=== PATIENT | female | born 1975 | race Caucasian/White ===

== ENCOUNTER 2024-11-11 12:42 | Emergency (ER) | payer BC, SELFPAY ==
--- NOTE | ~2024-11-11 | XR_ITS ---
CLINICAL HISTORY: pain between shoulder blades 2 view chest x-ray Comparison: None provided Findings: Three films were obtained. There is bronchial wall thickening. No consolidation, pleural effusion or pneumothorax. Normal size heart. No acute fracture. Multiple surgical clips in the upper abdomen. IMPRESSION: 1. Mild central bronchial wall thickening, which can be seen with asthma, reactive airways process or viral illness. 2. No superimposed infiltrate or consolidation. This document has been electronically signed by: Mercy Cardenas DO on 11/11/2024 15:56:54
--- NOTE | 2024-11-11 13:03 | ED_ITS ---
HPI - General Adult General Chief complaint: General Medical Stated complaint: abd pain, L arm pain and numbness Time Seen by Provider: 11/11/24 16:30 Source: patient and family (patient's ) Mode of arrival: ambulatory Limitations: no limitations History of Present Illness ED Provider: Chelsea Conway PA-C HPI narrative: Patient is a 49 year-old assigned female at with a history of endometriosis, asthma, HTN, hypothyroidism, cholecystectomy presenting to the emergency department today with upper back pain, headache, and left arm numbness and weakness. Patient states that the upper back pain is located between her shoulder blades and radiates to up her neck. She reports that this morning she noticed some numbness and weakness in her left arm. The pain first started 1 week ago. She denies a history of trauma or falls. She has been taking Ketoprofen (NSAID) with some relief. Patient reports she received a massage and acupuncture yesterday and they suggested she be medically evaluated for her symptoms as they could mean something more serious . Patient reports cough consistent with her asthma and seasonal allergies. Patient denies any dizziness, lightheadedness, abdominal pain, nausea, vomiting, fever, chills, blurry vision, double vision, loss of vision, bowel incontinence, bladder incontinence, or any other complaints at this time. She denies any recent travel, sick contacts, or known tick exposure. 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 Onset (ago): week(s) (1) Related Data Allergies Allergy/AdvReac Type Severity Reaction Status Date / Time No Known Allergies Allergy Verified 11/11/24 13:10 Review of Systems 2 Constitutional: Constitutional: Reports as per HPI Eyes: Eyes: Reports as per HPI ENT: Reports as per HPI Cardiovascular: Cardiovascular: Reports as per HPI Respiratory: Respiratory: Reports as per HPI Gastrointestinal: Gastrointestinal: Reports as per HPI Genitourinary: Genitourinary: Reports as per HPI Musculoskeletal: Musculoskeletal: Reports as per HPI Integumentary/Breasts: Skin/Breast: Reports as per HPI Neurologic: Reports as per HPI Psychiatric: Psychiatric: Reports as per HPI Endocrine: Endocrine: Reports as per HPI Hematologic/Lymphatic: Hematologic/Lymphatic: Reports as per HPI Allergic/Immunologic: Allergic/Immunologic: Reports as per HPI [facility] Past Medical History Attestation statement: The following information was validated with the patient. (all information validated with the patient's ) Source: old records reviewed, obtained from family (patient's provided additional history and confirmed the history provided by the patient. ) and nursing notes reviewed Social History Social History Advance Directives: No Advance Directives Information Provided: No Patient : No Physical Exam ED Vital Signs: Vital Signs - 24 hr 11/11/24 13:04 11/11/24 16:41 11/11/24 17:11 Temperature 97.9 F Pulse Rate 69 72 60 Respiratory Rate 18 16 18 Blood Pressure 162/72 H 178/77 H 143/66 H Pulse Oximetry 97 98 98 Oxygen Delivery Method Room Air Room Air Room Air 11/11/24 18:19 Temperature 97.8 F Pulse Rate 60 Respiratory Rate 18 Blood Pressure 143/66 H Pulse Oximetry 98 Oxygen Delivery Method Room Air BMI result Body Mass Index 32.1 Const General: cooperative, no acute distress, alert and awake Nutritional Appearance: well nourished Orientation/consciousness: patient oriented x3 HENMT Head: Yes normal to inspection and Yes atraumatic Ears: hearing grossly normal bilaterally and external ears normal General nose exam: Normal external nose present, no nasal discharge noted and no epistaxis Face and sinus: Yes normal facial exam, No abrasion and No laceration Mouth: Normal oral and palatal mucosa present, no drooling and no muffled voice Eyes General: appearance normal, both eyes and all related structures Periorbital: periorbital findings normal Eyelids: Yes eyelids normal Conjunctivae: conjunctivae normal Pupils: Equal, round and reactive pupils present EOM: EOMs intact bilaterally Neck Neck: Yes normal visual inspection and Yes full ROM Resp Effort & Inspection: normal respiratory effort and able to speak in complete sentences Neuro General: patient oriented x3, moves all extremities and CN's II-XI intact bilaterally Cranial nerves: Yes Equal, round and reactive pupils present Cognition (Neuro): normal cognition Extrem General: Yes normal to inspection, Yes full ROM and Yes capillary refill normal Psych Appearance: grossly normal Mental Status: mental status grossly normal Affect: normal affect Attitude: cooperative Thought process: Normal thought process present Thought content: Normal thought content present Insight: Good insight present (Psych) Course Course Course Narrative: This is a Rapid Medical Examination (RME) performed by Nba Merritt PA-C in triage. Full HPI, ROS, assessment and treatment plan per primary provider in the Main ED. Hx: 49 yo romansh speaking F here for eval of pain between shoulder blades x1 week. assoc epigastric pain/bloating. now having pain and numbness to LUE beginning today. went to an acupuncture massage today - advised to come to ED for further eval. states she is very nervous. Plan: labs, ekg, trop Medications Administered Discontinued Medications Generic Name Dose Route Start Last Admin Trade Name Amrit PRN Reason Stop Dose Admin Ketorolac Tromethamine 15 mg 11/11/24 17:57 11/11/24 18:01 Ketorolac Tromethamine 15 Mg/Ml Vial IM 11/11/24 17:58 15 mg ONCE ONE Administration Medical Decision Making Medical Decision Making [facility] Narrative: Patient is a 49 year-old assigned female at with a history of endometriosis, asthma, HTN, hypothyroidism, cholecystectomy presenting to the emergency department today with upper back pain, headache, and left arm numbness and weakness. Patient's physical exam was unremarkable, NIH score 0. Patient's blood work was unremarkable. Patient's EKG was unremarkable. Patient's chest x- ray showed evidence of small airway disease / asthma. I explained my physical exam findings as well as all test results to the patient and the patient's . I answered all questions asked by the patient and the patient's . Patient's clinical presentation is most consistent with a muscle strain / spasm vs. cervical radiculoapthy. I stressed the importance of the patient taking her medication as directed (either prescribed or as the over the counter packaging recommends). I stressed the importance of the patient following up with her primary care provider. I stressed the importance of the patient returning to the emergency department immediately if her symptoms were to worsen or if she were to develop any dizziness, shortness of breath, difficulty breathing, chest pain, blurry vision, loss of vision, nausea, vomiting, abdominal pain, fever, chills, back pain, or any other complaints. Patient and the patient's verbalized agreement and understanding with this treatment plan and discharge. Differential Diagnosis Differential Diagnoses: The differential diagnosis associated with the presentation includes NSTEMI STEMI Chest pain Back pain Muscle spasm Muscle strain Muscle sprain Admission/Observation Consideration of admission/observation: Escalation of care including admission/observation considered Patient would have been admitted to the hospital had her work up had any findings where hospital admission was appropriate and her clinical presentation warranted hospital admission. Lab Data [facility] Lab Attestation statement: I reviewed the patient's lab results. My interpretation of these results are in the [facility] Rationale portion of this note. 11/11/24 13:25 11/11/24 13:25 Labs: Lab Results 11/11/24 11/11/24 Range/Units 13:25 17:07 WBC 7.9 (4.8-10.8) X10*3/uL RBC 4.52 (4.20-5.50) X10*6/uL Hgb 13.6 (12.0-16.0) g/dl Hct 39.7 (37.0-47.0) % MCV 87.8 (80.0-98.0) fL MCH 30.1 (27.0-33.0) pg MCHC 34.3 (31.0-35.0) g/dl RDW 13.1 (11.0-16.0) % Plt Count 262 (160-400) X10*3/uL MPV 9.5 (9.4-12.3) fL Immature Gran % (Auto) 0.3 (0.0-0.4) % Neut % (Auto) 64.8 (45-73) % Lymph % (Auto) 21.7 (20-40) % Kleberg % (Auto) 6.6 (2-11) % Eos % (Auto) 5.7 H (0-4) % Baso % (Auto) 0.9 (0-2) % Lymph # (Auto) 1.7 (1.2-4.9) X10*3/uL Kleberg # (Auto) 0.5 (0.1-1.2) X10*3/uL Eos # (Auto) 0.5 H (0.0-0.4) X10*3/uL Baso # (Auto) 0.1 (0.0-0.2) X10*3/uL Abs Immat Gran (auto) 0.02 (0.00-0.03) X10*3/uL Absolute Neuts (auto) 5.1 (2.0-8.3) x10*3/uL Absolute Nucleated RBC 0.000 (0.0-0.012) X10*3/uL Nucleated RBC % (auto) 0.0 (0.0-0.2) /100WBC Sodium 144 (135-145) mmol/L Potassium 4.5 (3.3-5.1) mmol/L Chloride 111 H (96-108) mmol/L Carbon Dioxide 23 (22-29) mmol/L Anion Gap 15 (12-20) BUN 18 H (9-16) mg/dL Creatinine 0.68 (0.5-1.4) mg/dL Estim Creat Clear Calc 112.3 Estimated GFR > 60 Random Glucose 102 (60-115) mg/dL Calcium 9.1 (8.4-10.2) mg/dL Magnesium 2.1 (1.6-2.6) mg/dL Total Bilirubin 0.5 (0.0-1.0) mg/dL AST 20 (5-31) U/L ALT 17 (0-31) U/L Alkaline Phosphatase 77 (39-117) U/L Troponin I High Sens < 2.7 3.0 (<3.5-17.0) ng/L Total Protein 6.9 (6.5-8.0) g/dL Albumin 4.3 (3.5-5.0) g/dL Lipase 20 (8-78) U/L Independent Interpretation I performed an independent interpretation of an: EKG and Plain X-Ray Interpretation: My interpretation is in agreement with the radiologist's impression of this imaging study. L CLINICAL HISTORY: pain between shoulder blades 2 view chest x-ray Comparison: None provided Findings: Three films were obtained. There is bronchial wall thickening. No consolidation, pleural effusion or pneumothorax. Normal size heart. No acute fracture. Multiple surgical clips in the upper abdomen. IMPRESSION: 1. Mild central bronchial wall thickening, which can be seen with asthma, reactive airways process or viral illness. 2. No superimposed infiltrate or consolidation. This document has been electronically signed by: Mercy Cardenas DO on 11/11/2024 15:56:54 Dictated By: Mercy Cardenas MD Signed By: Electronically signed by Mercy Cardenas MD 11/11/24 1557 I independently interpreted this EKG and am in agreement with the below findings: Vent. Rate: 62 BPM Atrial Rate: 62 BPM P-R Int: 154 ms QRS Dur: 92 ms QT Int: 448 ms P-R-T Axes: 49 35 45 degrees QTcB Int: 454 ms Normal sinus rhythm No previous ECGs available Electronically Signed By: CALIN PEREIRA MD Dictated By: Calin Pereira MD Signed By: Electronically signed by Calin Pereira MD 11/12/24 1320 Radiology Impression Discussion of test interpretation with radiology: I have reviewed the radiologist's reading. Independent Historian Clinical information obtained from an independent historian. History obtained from or confirmed by: Spouse (Patient's provided additional history and confirmed the history provided by the patient. ) Discharge Plan Discharge Clinical Impression: Muscle strain Patient Disposition: Home, Self-Care Instructions: Muscle Strain (DC) Additional Instructions: Your work up today is reassuring there is no EMERGENT cause for your symptoms. Your x-ray, EKG, and lab work were all normal. IF you are prescribed home medications and/or you are taking over the counter medications at home - it is very important you continue to do so as prescribed / directed unless told otherwise. Follow up with a primary care provider. Return to the emergency department immediately if your symptoms worsen or if you develop any numbness, tingling, dizziness, shortness of breath, difficulty breathing, chest pain, blurry vision, loss of vision, nausea, vomiting, abdominal pain, fever, chills, back pain, or any other complaints. L If you do not have a primary care provider - call any of the below numbers to establish and follow up with a primary care provider. [facility] [place] [phone] [place] [address], [address] [facility] ([address] [place] [phone] [place] [address], [address] [facility], [address] [facility] ([address] [place]) [phone] [place] [address], [address] [facility], [address] [facility] [place]) [phone] [place] [address], [address] [place], [address] [facility] [phone] [address] [facility], [address] Please see the information below about our Patient Portal. If you are not yet enrolled in the [facility] Patient Portal, you will receive an enrollment email invitation following your visit to any [facility] setting. You may also self-enroll in the Patient Portal by visiting our website: [email or web address] The following information is required to access the Patient Portal: - Your [facility] Medical Record Number - Your personal home email address (must match what is in your electronic medical record, Registration staff can assist with this) - Name - Date of Capabilities of the Patient Portal: - Message some providers - View upcoming appointments - Access your health summary, medical history, and visit history - View current conditions and allergies - View procedure and lab results - View your medications, including guidelines, side effects, and precautions - Complete pre-appointment questionnaires requested by your provider - Ready summary reports of your office visits and procedures To access the Patient Portal Mobile [employer], follow these directions: - Search [employer] in the [employer] Store or [employer] ([place]) Store - Download the [employer] - Search for [facility] - Enter your login/password Interventions: ED Discharge Assessment Last Done: 11/11/24 18:19 Discharge Date/Time: 11/11/24 18:20 Print Language: Maura
[2024-11-11 13:04] VITALS: BP 162/72; PULSE 69; RESP 18; TEMP 36.6; O2SAT 97; BMI 32.1
--- NOTE | 2024-11-11 13:06 | ECG_ITS ---
Test Reason : CP Blood Pressure : */* mmHG Vent. Rate : 62 BPM Atrial Rate : 62 BPM P-R Int : 154 ms QRS Dur : 92 ms QT Int : 448 ms P-R-T Axes : 49 35 45 degrees QTcB Int : 454 ms Normal sinus rhythm Poor R wave progression Abnormal ECG No previous ECGs available Referred By: Tamiko Merritt Electronically Signed By: HAKAN PEREIRA MD
[2024-11-11 13:31] LABS: MANUAL DIFF FLAG NO
[2024-11-11 13:32] LABS: Hematocrit 39.7 % (37.0-47.0); Hemoglobin 13.6 g/dl (12.0-16.0); Imm Gran Abs Auto 0.02 X10*3/uL (0.00-0.03); Imm Gran Pct Auto 0.3 % (0.0-0.4); Lymphocytes Absolute Auto 1.7 X10*3/uL (1.2-4.9); Mean Corpuscular HGB Conc 34.3 g/dl (31.0-35.0); Mean Corpuscular Hemoglobin 30.1 pg (27.0-33.0); Mean Corpuscular Volume 87.8 fL (80.0-98.0); NRBC Abs Auto 0.000 X10*3/uL (0.0-0.012); NRBC Pct Auto 0.0 /100WBC (0.0-0.2); Platelet Count 262 X10*3/uL (160-400); Red Blood Count 4.52 X10*6/uL (4.20-5.50); White Blood Count 7.9 X10*3/uL (4.8-10.8)
[2024-11-11 13:48] LABS: Alanine Aminotransferase 17 U/L (0-31); Albumin Level 4.3 g/dL (3.5-5.0); Alkaline Phosphatase 77 U/L (39-117); Anion Gap 15 (12-20); Aspartate Amino Transferase 20 U/L (5-31); Blood Urea Nitrogen 18 mg/dL (9-16); Calcium 9.1 mg/dL (8.4-10.2); Carbon Dioxide 23 mmol/L (22-29); Chloride 111 mmol/L (96-108); Creatinine Clr Calc Pharmacy 112.3; Estimated Glomerular Filt Rate > 60; Lipase 20 U/L (8-78); Magnesium 2.1 mg/dL (1.6-2.6); Potassium 4.5 mmol/L (3.3-5.1); Sodium 144 mmol/L (135-145); Total Protein 6.9 g/dL (6.5-8.0)
[2024-11-11 13:56] LABS: Troponin-I High Sensitivity < 2.7 ng/L (<3.5-17.0)
[2024-11-11 16:41] VITALS: BP 178/77; PULSE 72; RESP 16; O2SAT 98
--- NOTE | 2024-11-11 16:46 | PC.NURSE ---
Patient presents to Ed c/o ABD distention with upper back pain rated 10/10 with movement Denies SOB, chest pain, n/v EKG = NSR CXR = Mild central bronchial wall thickening, which can be seen with asthma,reactive airways process or viral illnes. Provider in to see patient Plan of care on going
[2024-11-11 17:11] VITALS: BP 143/66; PULSE 60; RESP 18; O2SAT 98
--- OUTSIDE RECORDS SUMMARY | 2024-11-11 17:12 | XMS_ITS | Continuity of Care Document ---
Author Organization [facility] [address] [place] [address] Phone [phone] Problems Active Problems Provider Date Essential hypertension Marie Bowling Onset: 04/02/2022 Asthma Nunu Mendez M.D. Ons et: 04/02/2022 Gallstone Nunu Mendez M.D. Ons et: 04/02/2022 Emerson thyroiditis Donna Bowling Onset: 04/02/2022 Hypothyroidism Nunu Mendez M.D. Ons et: 04/02/2022 Multinodular goiter Nunu Mendez M.D. Onset: 04/02/2022 Endometriosis (clinical) Nunu Mendez M.D. Onset: 04/02/2022 Anxiety Nunu Mendez M.D. Ons et: 04/02/2022 Social History Type Date Description Comments Sex Female Sex Unknown Marital Status Legal Status: Lives With Male Partner Work Status Full-Time Employment Tobacco Use Start: Unknown Never Smoked Cigarettes ETOH Use Occasionally consumes alcoho l Allergies and adverse reactions Description No Known Drug Allergies Medications Active Medications SIG Qnty Indications Order ing Provider Date Sertraline [id number] Tablets Take 1 Tablet By Mouth Every Day In The Morning 90tabs Nunu Mendez M.D. 10/14/2023 Triamcinolone Acetonide0.1% Cream apply to affected area (rash) twice a day as needed 15gm Nunu Mendez M.D. 09/03/2022 Montelukast Ctnpta07my Tablets Take 1 Tablet By Mouth Every Day 90tabs Nunu Mendez M.D. 05/18/2022 Rxproqjyx163hm Tablets Take 1 tablet by mouth once daily 90tabs Nunu Mendez M.D. 04/02/2022 Lorazepam0.5mg Tablets 1 tabs by mouth every 6 hours as needed 30tabs Nunu Mendze M.D. 04/02/2022 Amlodipine Besylate2.5mg Tablets Take 1 Tablet By Mouth Every Day 90tabs Nunu Mendez M.D. 04/02/2022 Levothyroxine Sxjhrs00eft Tablets 1/2 by mouth every day Nunu Mendez M.D. Albuterol Sulfate OEE234(90Base) mcg/Act Aerosol use 2 puffs every 4 to 6 hours as needed 1gm Nunu Mendez M.D. Aspirin Ec Low Jxyu45ha Tablets DR 1 by mouth every day Nunu Mendez M.D. Breztri Rflvmxysru120-2-4.8mcg /Act Aerosol 2 puff twice a day Unknown Vital Signs Date Vital Result Comment 10/14/2023 3:58pm BP Systolic 128 mmHg BP Diastolic 64 mmHg Heart Rate 74 /min Height 67 inches 5'7 Weight 201.12 lb BMI (Body Mass Index) 31.5 kg/m2 Results Test Acquired Date Facility Test Result H/L Range Note CBC With Differential/Plat elet 02/21/2024 [facility] WBC 6.3 x10E3/uL 3.4-10.8 RBC 4.39 x10E6/uL 3.77-5.2 8 Hemoglobin 13.5 g/dL 11.1-15. 9 Hematocrit 42.0 % 34.0-46. 6 MCV 96 fL 79-97 MCH 30.8 pg 26.6-33. 0 MCHC 32.1 g/dL 31.5-35. 7 RDW 12.2 % 11.7-15. 4 Platelets 232 x10E3/uL 150-450 Neutrophils 64 % Not Estab. Lymphs 23 % Not Estab. Monocytes 6 % Not Estab. Eos 6 % Not Estab. Basos 1 % Not Estab. Immature Cells TNP Neutrophils (Absolute) 4.1 x10E3/uL 1.4-7.0 Lymphs (Absolute) 1.4 x10E3/uL 0.7-3.1 Monocytes(Absol ut e) 0.4 x10E3/uL 0.1-0.9 Eos (Absolute) 0.4 x10E3/uL 0.0-0.4 Baso (Absolute) 0.1 x10E3/uL 0.0-0.2 Immature Granulocytes 0 % Not Estab. Immature Grans (Abs) 0.0 x10E3/uL 0.0-0.1 NRBC TNP Hematology Comments: TNP Lipid Panel 02/21/2024 [facility] Cholesterol, Total 215 mg/dL High 100-199 Triglycerides 93 mg/dL 0-149 HDL Cholesterol 82 mg/dL >39 VLDL Cholestero l Fortino 16 mg/dL 5-40 LDL Chol Calc (Nih) 117 mg/dL High 0-99 LDL Calc Comment: TNP TSH Rfx on Abnormal to Free T4 02/21/2024 [facility] TSH Rfx on Abnormal to Free T4 2.400 uIU/mL 0.450-4. 500 Celiac AB TTG DGP Tiga 02/21/2024 [facility] Immunoglobulin A, Qn, Serum 367 mg/dL High 87-352 Deamidated Gliadin Abs, IgA 4 units 0-19 1 Deamidated Gliadin Abs, IgG 3 units 0-19 2 t-Transglutamin as e (tTG) IgA <2 U/mL 0-3 3 t-Transglutamin as e (tTG) IgG 4 U/mL 0-5 4 CMP14 02/21/2024 [facility] Glucose 103 mg/dL High 70-99 BUN 11 mg/dL 6-24 Creatinine 0.78 mg/dL 0.57-1.0 0 eGFR 92 mL/min/1. 73 >59 Sodium 142 mmol/L 134-144 Potassium 4.8 mmol/L 3.5-5.2 Chloride 107 mmol/L High 96-106 Carbon Dioxide, Total 22 mmol/L 20-29 Calcium 8.8 mg/dL 8.7-10.2 Protein, Total 6.1 g/dL 6.0-8.5 Albumin 4.0 g/dL 3.8-4.9 Globulin, Total 2.1 g/dL 1.5-4.5 Bilirubin, Total 0.4 mg/dL 0.0-1 .2 Alkaline Phosphatase 69 IU/L 44-121 Ast (Sgot) 18 IU/L 0-40 Alt (SGPT) 19 IU/L 0-32 TSH RFX On Abnormal To Free T4 10/14/2023 [facility] TSH RFX On Abnormal To Free T4 <pending> Comprehensive Metabolic Panl 01/12/2023 [facility] Glucose 89 mg/dL (70-99) BUN 9 mg/dL (6-20) Creatinine 0.6 mg/dL (0.5-1.0 ) Sodium 141 mmol/L (133-145 ) Potassium 4.0 mmol/L (3.6-5.2 ) Chloride 103 mmol/L (98-107) Bicarbonate 28 mmol/L (22-29) Anion Gap 10 (4-17) Albumin 4.4 GM/DL (3.4-4.8 ) Calcium 9.6 mg/dL (8.6-10. 5) Bilirubin,Total 0.3 mg/dL (0-1.2 ) Total Protein 7.0 GM/DL (6.2-8.2 ) Ag Ratio 1.7 Ast 19 U/L (0-32) Alk Phos 90 U/L (35-104) Alt 30 U/L (0-33) Estimated GFR Creatinine 109 ML/MIN/1. 73M2 5 TSH With Reflex To FT4 01/12/2023 [facility] TSH With Reflex To FT4 2.02 uIU/mL (0.4-4.2 ) Complete Abc With Diff 01/12/2023 [facility] WBC 6.7 K/MM3 (4.0-11. 0) RBC 4.50 M/MM3 (4.20-5. 40) HGB 13.6 GM/DL (11.7-15 .5) HCT 42.0 % (35.7-45 .8) MCV 93.3 FL (80.0-10 0.0) MCH 30.2 pg (27.0-34 .0) MCHC 32.4 g/dL Low (33.0-37 .0) PLT 313 K/MM3 (150-460 ) RDW-SD 45.2 FL (<47.0) MPV 10.6 FL (9.4-12. 4) Automated NRBC 0.0 #/100WBC' S Abs. NRBC 0.0 K/MM3 Neut # 3.8 K/MM3 (1.3-7.0 ) Lymph # 2.0 K/MM3 (0.8-3.1 ) Tyler# 0.4 K/MM3 (0.4-0.9 ) Eo # 0.5 K/MM3 High (0.0-0.4 ) Baso # 0.1 K/MM3 (0.0-0.1 ) Abs. Imm Gran 0.0 K/MM3 Neut 56.4 % (44-76) Lymph 29.4 % (15-43) Monocyte 5.4 % (4.5-10. 5) Eo 7.8 % High (0-6) Baso 0.7 % (0-2) Imm Gran 0.3 % Basic Metabolic Panel 05/18/2022 [facility] Glucose 91 mg/dL (70-99) BUN 17 mg/dL (6-20) Creatinine 0.7 mg/dL (0.5-1.0 ) Sodium 143 mmol/L (133-145 ) Potassium 4.3 mmol/L (3.6-5.2 ) Chloride 105 mmol/L (98-107) Bicarbonate 27 mmol/L (22-29) Anion Gap 11 (4-17) Calcium 9.6 mg/dL (8.6-10. 5) Estimated GFR Creatinine 107 ML/MIN/1. 73M2 6 Comprehensive Metabolic Panl 04/02/2022 [facility] Glucose 91 mg/dL (70-99) BUN 16 mg/dL (6-20) Creatinine 0.8 mg/dL (0.5-1.0 ) Sodium 143 mmol/L (133-145 ) Potassium 5.1 mmol/L (3.6-5.2 ) Chloride 107 mmol/L (98-107) Bicarbonate 28 mmol/L (22-29) Anion Gap 8 (4-17) Albumin 4.6 GM/DL (3.4-4.8 ) Calcium 9.9 mg/dL (8.6-10. 5) Bilirubin,Total 0.3 mg/dL (0-1.2 ) Total Protein 6.9 GM/DL (6.2-8.2 ) Ag Ratio 2.0 Ast 21 U/L (0-32) Alk Phos 81 U/L (35-104) Alt 30 U/L (0-33) Estimated GFR Creatinine 96 ML/MIN/1. 73M2 7 Complete Abc With Diff 04/02/2022 [facility] WBC 5.6 K/MM3 (4.0-11. 0) RBC 4.77 M/MM3 (4.20-5. 40) HGB 14.2 GM/DL (11.7-15 .5) HCT 45.0 % (35.7-45 .8) MCV 94.3 FL (80.0-10 0.0) MCH 29.8 pg (27.0-34 .0) MCHC 31.6 g/dL Low (33.0-37 .0) PLT 291 K/MM3 (150-460 ) RDW-SD 43.5 FL (<47.0) MPV 10.8 FL (9.4-12. 4) Automated NRBC 0.0 #/100WBC' S Abs. NRBC 0.0 K/MM3 Neut # 2.9 K/MM3 (1.3-7.0 ) Lymph # 1.7 K/MM3 (0.8-3.1 ) Tyler# 0.4 K/MM3 (0.4-0.9 ) Eo # 0.6 K/MM3 High (0.0-0.4 ) Baso # 0.1 K/MM3 (0.0-0.1 ) Abs. Imm Gran 0.0 K/MM3 Neut 51.0 % (44-76) Lymph 31.0 % (15-43) Monocyte 6.4 % (4.5-10. 5) Eo 10.3 % High (0-6) Baso 1.1 % (0-2) Imm Gran 0.2 % TSH With Reflex To FT4 04/02/2022 [facility] TSH With Reflex To FT4 1.36 uIU/mL (0.4-4.2 ) Complete Abc With Diff 11/03/2021 [facility] WBC 8.9 K/MM3 (4.0-11. 0) RBC 4.45 M/MM3 (4.20-5. 40) HGB 14.0 GM/DL (11.7-15 .5) HCT 42.1 % (35.7-45 .8) MCV 94.6 FL (80.0-10 0.0) MCH 31.5 pg (27.0-34 .0) MCHC 33.3 g/dL (33.0-37 .0) PLT 278 K/MM3 (150-460 ) RDW-SD 44.3 FL (<47.0) MPV 10.7 FL (9.4-12. 4) Automated NRBC 0.0 #/100WBC' S Abs. NRBC 0.0 K/MM3 Neut # 5.8 K/MM3 (1.3-7.0 ) Lymph # 2.2 K/MM3 (0.8-3.1 ) Tyler# 0.4 K/MM3 (0.4-0.9 ) Eo # 0.4 K/MM3 (0.0-0.4 ) Baso # 0.1 K/MM3 (0.0-0.1 ) Abs. Imm Gran 0.0 K/MM3 Neut 65.3 % (44-76) Lymph 24.7 % (15-43) Monocyte 4.5 % (4.5-10. 5) Eo 4.6 % (0-6) Baso 0.6 % (0-2) Imm Gran 0.3 % Basic Metabolic Panel 11/03/2021 [facility] Glucose 107 mg/dL High (70-99) 8 BUN 20 mg/dL (6-20) Creatinine 0.7 mg/dL (0.5-1.0 ) Sodium 143 mmol/L (133-145 ) Potassium 4.8 mmol/L (3.6-5.2 ) Chloride 106 mmol/L (98-107) Bicarbonate 27 mmol/L (22-29) Anion Gap 10 (4-17) Calcium 9.3 mg/dL (8.6-10. 5) Estimated GFR Creatinine 107 ML/MIN/1. 73M2 9 Prolactin 11/03/2021 [facility] Prolactin 14.5 NG/ML (4.8-23. 3) TSH With Reflex To FT4 11/03/2021 [facility] TSH With Reflex To FT4 1.97 uIU/mL (0.4-4.2 ) 1 Negative 0 - 19 Weak Positive 20 - 30 Moderate to Strong Positive >30 2 Negative 0 - 19 Weak Positive 20 - 30 Moderate to Strong Positive >30 3 Negative 0 - 3 Weak Positive 4 - 10 Positive >10 Tissue Transglutaminase (tTG) has been identified as the endomysial antigen. Studies have demonstr- ated that endomysial IgA antibodies have over 99% specificity for gluten sensitive enteropathy. 4 Negative 0 - 5 Weak Positive 6 - 9 Positive >9 5 Creatinine based est imated glomerular filtration (eGFR) in adults is calculated using the [employer] recommended 202 CKD-EPI equation. Estimates GFR from serum creatinine, age and sex. 6 Creatinine based est imated glomerular filtration (eGFR) in adults is calculated using the [employer] recommended 202 CKD-EPI equation. Estimates GFR from serum creatinine, age and sex. 7 Creatinine based est imated glomerular filtration (eGFR) in adults is calculated using the [employer] recommended 202 CKD-EPI equation. Estimates GFR from serum creatinine, age and sex. 8 Patient not fasting 9 Creatinine based est imated glomerular filtration (eGFR) in adults is calculated using the [employer] recommended 2020 CKD-EPI equation. Estimates GFR from serum creatinine, age and sex. Procedures Date Code Description Status 01/12/2023 75505 Collection Of Venous Blood B y Venipuncture Completed 05/18/2022 69974 Collection Of Venous Blood B y Venipuncture Completed 04/02/2022 07548 Electrocardiogram Complete C ompleted 04/02/2022 82060 Collection Of Venous Blood B y Venipuncture Completed 10/02/2021 NSHOWOFF No Show Office Visit Complet ed Medical Devices Description No Information Available Encounters Type Date Location Provider Dx Diagnosis Office Visit 10/14/2023 3:15p Main Office Nunu Mendez M.D. E03.9 Hypothyroidism, unspecified F41.1 Generalized anxiety disorder I10 Essential (primary) hypertension J45.20 Mild intermittent as thma, uncomplicated R14.0 Abdominal distension (gaseous) E04.1 Nontoxic single thyr oid nodule M54.9 Dorsalgia, unspecifi ed Assessments Date Code Description Provider 10/14/2023 E03.9 Hypothyroidism, unspecified Nunu Mendez M.D. 10/14/2023 F41.1 Generalized anxiety disorder Nunu Mendez M.D. 10/14/2023 I10 Essential (primary) hyperten kriss Nunu Mendez M.D. 10/14/2023 J45.20 Mild intermitten t asthma, uncomplicated Nunu Mendez M.D. 10/14/2023 R14.0 Abdominal distension (gaseou s) Nunu Mendez M.D. 10/14/2023 E04.1 Nontoxic single thyroid nodu le Nunu Mendez M.D. 10/14/2023 M54.9 Back pain NOS Nunu Castro M.D. Plan of Treatment 10/14/2023 - Nunu Mendez M.D.* E03.9 Hypothyroidism, unspecified * F41.1 Generalized anxiety disorder * I10 Essential (primary) hypertension * J45.20 Mild intermittent asthma, uncomplicated * R14.0 Abdominal distension (gaseous) * E04.1 Nontoxic single thyroid nodule * M54.9 Back pain NOS * * New Labs:* TSH RFX On Abnormal To Free T4, Ordered: 10/14/23 Functional Status Description No Information Available Mental Status Description No Information Available Referrals Refer to Reason for Referral Status Appt Lex e Closed [facility] KNEE PAIN WITH EXERCISE Closed 06/24/2023 [address] [facility] [address] [place] [address] [phone] [facility] NOSE POLYPS Closed 0 08/10/[address] [place] [address] [phone] David Reynaga MD ALLERGIC SINUSITIS ASTHMA Schedul ed [address] [place] [address] Dr. Cos[address] [place] [address] [phone] Rashi Fairbanks MD SCREENING FOR COLONOSCOPY Closed [address] [place] [address] [phone]
--- OUTSIDE RECORDS SUMMARY | 2024-11-11 17:12 | XMS_ITS | Patient Health Record ---
Author Organization [facility] [place] Address [address] [facility] [place] [address] Care Team Providers Care Special Events Fundraiser Name Role Phone Andrea CARDENAS, Nunu Primary Care Provider Unavailable Yoshi Ackerman Unavailable [phone] Allergies No Known Allergies Reason For Referral No Information Medications Medication SIG (Take, Route, Frequency, Duration) Notes Start Date End Date Status Euthyrox 25 MCG 1 tablet in the morn ing on an empty stomach Orally Once a day; Duration: 30 day(s) Active Euthyrox 25 MCG 1 tablet in the morn ing on an empty stomach Orally Once a day Active amLODIPine Besylate 2.5 MG TAKE 1 TABLET BY MOUTH EVERY DAY Oral; Duration: 90 Active Montelukast Sodium 10 MG TAKE 1 TABLET B Y MOUTH EVERY DAY Oral; Duration: 90 Active Breztri Aerosphere A ctive Valsartan 160 MG TAKE 1 TABLET BY RM TH ONCE DAILY Oral; Duration: 90 Active Estradiol Qlaira Active predniSONE 20 MG PLEASE SEE ATTACHED FOR DETAILED DIRECTIONS Oral; Duration: 7 Not-Taking Breztri Aerosphere 160-9-4.8 MCG/ACT INHALE 2 PUFFS BY MOUTH TWICE A DAY RINSE MOUTH AFTER USE Inhalation; Duration: 30 Active ZyrTEC Active Valsartan 160 MG 1 tablet Orally Once a day Active Estradiol 0.1 MG/GM _insert 1 GRAM VAGINALLY AT BEDTIME Vaginal; Duration: 42 Not-Taking Montelukast Sodium 10 MG 1 tablet Orally Once a day Active amLODIPine Besylate 2.5 MG 1 tablet Orally Once a day Active Social History Tobacco Use: Social History Observation Description Date Details (start date - stop date) Former Smoker NA - NA Tobacco Use/Smoking Question Answer Notes Are you a: former smoker Additional Findings: Tobacco Non-User Current no n-smoker Alcohol Screen Question Answer Notes Did you have a drink containing alcohol in the p ast year? Yes Points 0 Interpretation Negative Problems Problem Type SNOMED Code ICD Code Onset Dates Problem Status W/U Status Risk Notes Problem Information temporarily unavailable Hallux valgus (acquired), right foot (M20.11) Active confirmed Problem Information temporarily unavailable Interstitial myositis of left foot (M60.172) Active confirmed Plan Of Treatment Pending Test Test Name Order Date X ray : Foot, left 3V 04/19/2023 X ray : Foot, right 3V 05/10/2023 Insurance Providers Payer Name Payer Address Payer Phone Subscriber Number Group Number Insured Name Patient Relationship to Insured Coverage Start Date Coverage End Date [facility] [address] [place] [address] [id number] Yelena Vincent Self - patient is the insured Medical (General) History Medical History History ICD Code asthma High blood pressure thyroid Mumps Chicken pox Surgical History Surgery Date(Month/Year) section 1993, 2009 endometriosis 2015 Gall bladder 06/2021
--- OUTSIDE RECORDS SUMMARY | 2024-11-11 17:12 | XMS_ITS | Clinical Summary ---
Author Organization [facility] Address [id number] [place] [address] Phone Care Team Providers Care Cosmetology Instructor Name Role Phone Nunu Mendez MD Primary Care Prov ider Allergies No known active allergies Medications levothyroxine (SYNTHROID,LEVOT HROID) 25 MCG tablet Take 25 mcg by mouth every morning. 1/2 tab QD Active valsartan (DIOVAN) 160 MG tablet Take 160 mg by mouth daily. Active amLODIPine (NORVASC) 2.5 MG tablet Take 5 mg by mouth daily. Active estradioL (ESTRACE) 1 MG tablet Take 1 mg by mouth daily. Active sertraline (ZOLOFT) 25 MG tablet Take by mouth. 10/14/2023 Active cetirizine (ZYRTEC) 10 mg capsule ZyrTEC Active montelukast (SINGULAIR) 10 mg tablet Take 10 mg by mouth daily. Active Active Problems No known active problems Social History Tobacco Use Types Packs/Day Years Used Date Smoking Tobacco: Never Passive Smoke Exposure: Never Smokeless Tobacco: Never Alcohol Use Standard Drinks/Week Comments Not Currently 0 (1 standard drink = 0.6 oz pur e alcohol) Education Answer Date Recorded Are you interested in more education? Not on oliver e 05/26/2023 Are you concerned about learning? Not on file 05/26/2023 No 05/26/2023 No 05/26/2023 Digital Access Answer Date Recorded No 05/26/2023 No 05/26/2023 Reliable internet access at home? Not on file 05/26/2023 Device with a working camera? Not on file Comments Unknown Sex and Gender Information Value Date Recorded Sex Assigned at Not on file Legal Sex Female 2:00 PM EDT Gender Identity Not on file Sexual Orientation Not on file Last Filed Vital Signs Vital Sign Reading Time Taken Comments Blood Pressure 143/81 04/13/2024 5:23 PM EST Pulse 80 04/13/2024 5:23 PM EST Temperature 36.8 C (98.2 F) 04/13/2024 5:23 PM EST Respiratory Rate 16 04/13/2024 5:23 PM EST Oxygen Saturation 97% 04/13/2024 5:23 PM EST Inhaled Oxygen Concentration - - Weight 90.7 kg (200 lb) 04/13/2024 5:23 PM EST Height 170.2 cm (5' 7 ) 04/13/2024 5:23 PM EST Body Mass Index 31.32 04/13/2024 5:23 PM EST Plan of Treatment Upcoming Encounters Date Type Department Care Team (Late st Contact Info) Description 06/21/2025 8:00 AM EDT Office Visit [facility] Medicine [address] [place] [address] Tod Perales MD [address] [facility], [address] [place] [address] [email or web address] Health Maintenance Due Date Last Done Comments CREATININE LEVEL 1973 LIPID PANEL 1973 POTASSIUM LEVEL 1973 TSH LEVEL 1973 DEPRESSION SCREENING 1985 HEPATITIS C SCREENING 1991 HIV ONE-TIME SCREENING (18-6 5 YEARS) 1991 PAP SMEAR 1994 SCREENING FOR DIABETES 01/09/2008 MAMMOGRAM 2013 COLOGUARD 2018 COLONOSCOPY 2018 COLORECTAL CANCER SCREENING 2018 FIT TEST 2018 FOBT 2018 SIGMOIDOSCOPY 2018 VIRTUAL COLONOSCOPY 2018 PNEUMOCOCCAL VACCINES (50+ y ears) (1 of 1 - PCV) 2023 ZOSTER VACCINES (1 of 2) 2023 COVID-19 VACCINE (1 - 2023-2 5 season) 2023 Adult Td,Tdap Booster 04/02/2034 04/02/2024 SMOKING STATUS SCREENING (On ce After 26 Yrs) Completed 04/13/2024 HEPATITIS A VACCINES Aged Out No long er eligible based on patient's age to complete this topic HIB VACCINES Aged Out No longer eligi ble based on patient's age to complete this topic MENINGOCOCCAL VACCINES (ACWY) Aged Out No longer eligible based on patient's age to complete this topic MENINGOCOCCAL VACCINES (B) Aged Out N o longer eligible based on patient's age to complete this topic Medical Devices Not on file Insurance HMO Member Subscriber Plan / Payer (Ef fective 2023-Present) Name:Yelena Vincent Relation to Subscriber:Self Name:Yelena Vincent Payer ID:Not on file Type:O Address: [address] EPO HMO Member Subscriber Plan / Payer (Ef fective 2023-Present) Name:Yelena Vincent Relation to Subscriber:Self Name:Yelena Vincent Payer ID:Not on file Type:O Address: [address] PPO EPO HMO PPO EPO HMO [facility] PPO EPO HMO [facility] PPO EPO [facility] HMO [facility] Address: [facility] [address] [place] [address] [facility] EPO Care Teams Cosmetology Instructor Relationship Specialty Start Date End Date Nunu Mendez MD [address] [place] [address] [place] [address] PCP - General 05/26/23 Additional Source Comments The information contained in this document represents components of the legal health record. It is not the complete legal health record.[facility]
[2024-11-11 17:43] LABS: Troponin-I High Sensitivity 3.0 ng/L (<3.5-17.0)
[2024-11-11 18:19] VITALS: BP 143/66; PULSE 60; RESP 18; TEMP 36.6; O2SAT 98
[2024-11-13 09:28] LABS: A. Phagocytphilium DNA,RT-PCR NOT DETECTED (NOT DETECTED); Babesia Microti DNA, RT-PCR NOT DETECTED (NOT DETECTED); Borrelia Miyamotoi,DNA RT-PCR NOT DETECTED (NOT DETECTED); E.Chaffeensis DNA RT-PCR NOT DETECTED (NOT DETECTED); Lyme(Borrelia ssp)DNA RT-PCR NOT DETECTED (NOT DETECTED)
[2024-11-13 13:13] LABS: Lyme Abs Screen <0.90 index
== END 2024-11-11 18:20 | disposition home or self-care (01) ==
PROVIDERS: Physician Assistant Medical; Emergency Provider Emergency Medicine
DX: M79.10 Myalgia, unspecified site (principal); R51.9 Headache, unspecified; I10 Essential (primary) hypertension; Z79.899 Other long term (current) drug therapy
CPT/HCPCS: 36415; 71046; 80053; 83690; 83735; 84484; 85025; 86617; 86618; 87468; 87469; 87478; 87484; 87798; 93005; 96372; 99284; 99285; J1885

== ENCOUNTER → 2024-11-11 13:06 | Outpatient (BNV) | payer BC, SELFPAY | PROVIDERS: Emergency Provider Emergency Medicine; Visit Provider Internal Medicine Cardiovascular Disease | DX: R94.31 Abnormal electrocardiogram [ECG] [EKG] (principal); R07.9 Chest pain, unspecified | CPT/HCPCS: 93010 ==

== ENCOUNTER → 2024-11-11 14:34 | Outpatient (BNV) | payer BC, SELFPAY | PROVIDERS: Visit Provider Radiology Diagnostic Radiology | DX: J84.89 Other specified interstitial pulmonary diseases (principal) | CPT/HCPCS: 71046 ==